=== PATIENT | male | born 1985 | race African-American/Black ===

== ENCOUNTER 2016-05-22 20:02 | Emergency (ER) | payer OTHER ==
[~2016-05-22] VITALS: Ht 175.3 cm; Wt 68.0 kg
[2016-05-22] MEDS ORDERED: NORFLEX100 MG PO (20:26)
[2016-05-22] MEDS ORDERED: NAPROSYN500 MG PO (20:26)
[2016-05-22 20:41] VITALS: BP 149/99
== END 2016-05-22 20:42 | disposition home or self-care (01) ==
LOC: ER 20:02
DX: S16.1XXA Strain of muscle, fascia and tendon at neck level, initial encounter (principal); I10 Essential (primary) hypertension; V89.2XXA Person injured in unspecified motor-vehicle accident, traffic, initial encounter; Y93.I9 Activity, other involving external motion; Y92.89 Other specified places as the place of occurrence of the external cause; Y99.8 Other external cause status